=== PATIENT | male | born 1995 | race African-American/Black ===

== ENCOUNTER 2017-01-10 11:50 | Emergency (ER) | payer MEDICAID ==
[~2017-01-10] VITALS: Ht 177.8 cm; Wt 70.0 kg
[2017-01-10 12:01] VITALS: BP 118/70
== END 2017-01-10 13:59 | disposition home or self-care (01) ==
LOC: ER 13:55
DX: H91.91 Unspecified hearing loss, right ear (principal)
CPT/HCPCS: 99282; X7700

== ENCOUNTER 2018-09-05 13:58 | Emergency (ER) | payer MEDICAID ==
[~2018-09-05] VITALS: Ht 175.3 cm; Wt 71.0 kg
[2018-09-05 21:10] VITALS: BP 119/75
== END 2018-09-05 21:14 | disposition home or self-care (01) ==
LOC: ER 13:58
DX: J06.9 Acute upper respiratory infection, unspecified (principal)
CPT/HCPCS: 71045; 93005; 99283